=== PATIENT | male | born 1970 | race Caucasian/White ===

== ENCOUNTER 2024-01-31 06:05 | Day surgery (SDC) | payer MEDICAID ==
[~2024-01-31] VITALS: Ht 172.7 cm; Wt 72.6 kg
[2024-01-31] MEDS ORDERED: MIDAZOLAM HCL 5 MG/5 ML VIAL ONE (06:54)
[2024-01-31] MEDS ORDERED: SIMETHICONE 40 MG/0.6 ML ML ONE (06:54)
[2024-01-31] MEDS ORDERED: MEPERIDINE 100 MG INJ. 100 MG/ML VIAL ONE (06:54)
[2024-01-31 11:16] VITALS: TEMP 98.4; O2SAT 99
[2024-01-31 12:12] VITALS: BP_SYST 115; PULSE 58; RESP 15
== END 2024-01-31 10:15 | disposition home or self-care (01) ==
LOC: SDS 06:05 → SMU 06:06 → SDS 10:15
PROVIDERS: ATTEND Internal Medicine Gastroenterology
DX: Z12.11 Encounter for screening for malignant neoplasm of colon (principal); D12.3 Benign neoplasm of transverse colon; K29.50 Unspecified chronic gastritis without bleeding; K21.9 Gastro-esophageal reflux disease without esophagitis; K29.80 Duodenitis without bleeding; J45.909 Unspecified asthma, uncomplicated; E78.5 Hyperlipidemia, unspecified; E11.9 Type 2 diabetes mellitus without complications; Z79.84 Long term (current) use of oral hypoglycemic drugs; Z79.899 Other long term (current) drug therapy
CPT/HCPCS: 45380; 43239; 99152; 87081; 36415; 82948; 88305; 88312; 88313; 99153; G0378; J2250; J2175